=== PATIENT | female | born 1970 | race Caucasian/White ===

== ENCOUNTER 2020-09-12 07:22 | Emergency (ER) | payer MEDICAID ==
[~2020-09-12] VITALS: Ht 160 cm; Wt 55.3 kg
[2020-09-12 07:42] VITALS: Ht 160 cm; Wt 55.3 kg
[2020-09-12 08:46] LABS: CARBON DIOXIDE 28.5 mmol/L (21-32); CHLORIDE SERUM 106 mmol/L (98-107); CREATININE SERUM 0.7 mg/dL (0.6-1.0); GFR1 > 60 mL/min; GLUCOSE SERUM 94 mg/dL (74-106); POTASSIUM SERUM 4.2 mmol/L (3.5-5.1); SODIUM SERUM 141 mmol/L (136-145)
[2020-09-12 08:47] LABS: BASOPHIL % 0.1 % (0-2); PLATELET COUNT 243 x10^3mcL (130-400)
[2020-09-12 08:48] LABS: RED CELL DISTRIBUTION WIDTH 21.1 % (11.5-14.5)
[2020-09-12 08:51] LABS: ALBUMIN 3.6 g/dL (3.4-5.0); ALKALINE PHOSPHATASE 124 U/L (46-116); ALT/SGPT 20 U/L (14-59); AST/SGOT 20 U/L (15-37); BILIRUBIN TOTAL 0.51 mg/dL (0.20-1.00); TOTAL PROTEIN, SERUM 7.5 g/dL (6.4-8.2)
[2020-09-12 10:54] VITALS: BP 123/60
== END 2020-09-12 10:54 | disposition home or self-care (01) ==
LOC: ED 07:22
PROVIDERS: Emergency Medicine
DX: R07.89 Other chest pain (principal); R06.02 Shortness of breath; Z20.828 Contact with and (suspected) exposure to other viral communicable diseases; Z86.2 Personal history of diseases of the blood and blood-forming organs and certain disorders involving the immune mechanism
CPT/HCPCS: 85378

== ENCOUNTER 2020-09-22 10:27 | Emergency (ER) | payer MEDICAID, SELFPAY ==
[~2020-09-22] VITALS: Ht 152.4 cm; Wt 55.3 kg
[2020-09-22 10:32] VITALS: Ht 152.4 cm; Wt 55.3 kg
[2020-09-22 12:12] VITALS: BP 115/50
== END 2020-09-22 12:12 | disposition home or self-care (01) ==
LOC: ED 10:27
DX: U07.1 COVID-19 (principal); Z86.2 Personal history of diseases of the blood and blood-forming organs and certain disorders involving the immune mechanism
CPT/HCPCS: U0003